=== PATIENT | male | born 1985 | race Caucasian/White ===

== ENCOUNTER 2021-09-17 21:04 | Emergency (ER) | payer SELFPAY ==
[2021-09-17 23:03] LABS: CORONAVIRUS 2019 SARS-COV-2 NEGATIVE (NEGATIVE); INFLUENZA A NAA NEGATIVE (NEGATIVE)
[2021-09-18 00:29] LABS: BASOPHIL 0.3 % (0-2); EOSINOPHIL 0.3 % (0-5); HCT 45.7 % (42.0-52.0); HGB 15.3 g/dl (13.2-18.0); LYMPHOCYTE 22.1 % (15-48); MCH 28.5 pg (25.0-31.0); MCHC 33.5 g/dL (32.0-36.0); MCV 85.1 fL (78.0-100.0); MONOCYTE 11.7 % (0-12); NRBC 0; PLT 394 K/uL (150-400); RBC 5.37 M/uL (4.70-6.00); RDW 11.7 % (11.5-14.0); WBC 9.1 K/uL (4.0-10.5)
[2021-09-18 00:45] LABS: ALBUMIN 3.4 g/dL (3.4-5.0); BILIRUBIN - TOTAL 0.6 mg/dL (0.2-1.0); BUN/CREAT RATIO (CALC) 8.2 RATIO; CREATININE 0.97 mg/dL (0.67-1.17); GLOBULIN (CALCULATION) 4.7 g/dL; POTASSIUM 3.8 mmol/L (3.5-5.1); TOTAL PROTEIN 8.1 g/dL (6.4-8.2)
[2021-09-18 00:50] LABS: BILIRUBIN NEGATIVE (NEGATIVE); BLOOD 1+ Ery/uL (NEGATIVE); CLARITY CLEAR (CLEAR); COLOR YELLOW (YELLOW); GLUCOSE (U) NORMAL (NORMAL); LEUKOCYTES NEGATIVE Leu/uL (NEGATIVE); NITRITE NEGATIVE (NEGATIVE); PROTEIN NEGATIVE (NEGATIVE); UROBILINOGEN 0.2 mg/dL (0.2-1.0)
== END 2021-09-18 03:53 | disposition home or self-care (01) ==
LOC: FER 21:04
PROVIDERS: Internal Medicine
DX: K76.0 Fatty (change of) liver, not elsewhere classified (principal); Z20.822 Contact with and (suspected) exposure to COVID-19
CPT/HCPCS: 36415; 71250; 80053; 81001; 83690; 84145; 85025; J7120; U0002